=== PATIENT | female | born 1985 | race Caucasian/White ===

== ENCOUNTER 2020-12-15 07:07 | Emergency (ER) | payer OTHER ==
[2020-12-15 07:40] VITALS: BP 116/84; PULSE 73; TEMP 98.2; BMI 19.3
[2020-12-15 08:01] LABS: BASO % 0.8 % (0-2.0); EOS % 9.1 % (0-4.5); HEMATOCRIT 34.8 % (32.4-45.2); HEMOGLOBIN 11.8 GM/dL (10.7-15.3); LYMPH % 32.4 % (8-40); MCH 28.8 pg (25.7-33.7); MCHC 33.8 g/dl (32.0-36.0); MEAN CELL VOLUME 85.3 fl (80-96); MEAN PLT VOLUME 7.5 fl (7.5-11.1); MONO % 13.9 % (3.8-10.2); NEUT % 43.8 % (42.8-82.8); PLATELET COUNT 295 10^3/uL (134-434); RBC 4.08 M/mm3 (3.60-5.2); WHITE BLOOD COUNT 6.6 K/mm3 (4.0-10.0)
[2020-12-15 09:18] LABS: CHLORIDE 110 mmol/L (98-107); SODIUM 142 mmol/L (136-145)
[2020-12-15 09:20] LABS: CALCIUM 8.9 mg/dL (8.5-10.1)
[2020-12-15 09:21] LABS: ALBUMIN 4.1 g/dl (3.4-5.0); ANION GAP 5 MMOL/L (8-16); BLOOD UREA NITROGEN 15.2 mg/dL (7-18); CO2 27 mmol/L (21-32); GLUCOSE,RANDOM 81 mg/dL (74-106)
[2020-12-15 09:24] LABS: CREATININE 0.9 mg/dL (0.55-1.3); SGOT/AST 30 U/L (15-37); SGPT/ALT 18 U/L (13-61)
[2020-12-15 09:25] LABS: BILIRUBIN,TOTAL 0.5 mg/dL (0.2-1); TOT PROT 7.4 g/dl (6.4-8.2)
[2020-12-15 09:27] LABS: ALK PHOS 53 U/L (45-117)
== END 2020-12-15 13:17 | disposition home or self-care (01) ==
LOC: JER 07:07
DX: F19.10 Other psychoactive substance abuse, uncomplicated (principal)
CPT/HCPCS: 36415; 70450-TC; 72125-TC; 80053; 80307; 84703; 85025; 99284-25